=== PATIENT | male | born 1980 | race Caucasian/White ===

== ENCOUNTER 2017-12-11 14:23 | Emergency (ER) | payer OTHER ==
[~2017-12-11] VITALS: Ht 177.8 cm; Wt 74.0 kg
[2017-12-11 14:26] VITALS: Ht 177.8 cm; Wt 74.0 kg
[2017-12-11] MEDS ORDERED: LIDOCAINE HCL 1% 20 ML VIAL ONE (14:31)
[2017-12-11] MEDS ORDERED: LIDOCAINE/EPINEPHRINE 1% 20 ML VIAL ONE (14:36)
[2017-12-11] MEDS ORDERED: LIDOCAINE/EPINEPHRINE 1% 20 ML VIAL INFIL ONE (14:45)
--- NOTE | 2017-12-11 15:07 | EMERGENCY ROOM VISIT NOTE ---
ED Visit Note First contact with patient: 14:28 CHIEF COMPLAINT: Hand laceration HISTORY OF PRESENT ILLNESS: This 37-year-old male patient presents to the emergency department by private vehicle after cutting the right hand with a piece of sheet metal at work. The bleeding has not stopped. Denies weakness or numbness of the hand or fingers. The patient rates the pain as burning/ throbbing and 7/10. The patient denies any other injuries. The patient's Tetanus shot is up to date. He is right-hand dominant. REVIEW OF SYSTEMS: A 6 system review of systems was completed with positives and pertinent negatives listed in the HPI. ALLERGIES: No known allergies. MEDICATIONS: No current medications. PMH: No significant past medical or surgical history. SOCIAL HISTORY: Lives at home. He is a current everyday smoker. PHYSICAL EXAM: Vital Signs: Reviewed Nurse's notes, vital signs stable. GENERAL : Pleasant and cooperative, in no acute distress, but appears uncomfortable and in pain, well-developed, well-nourished. SKIN: There is a 3.5 cm long laceration on the lateral palmar aspect of the left hand between the thumb and index finger. The edges gape apart with traction. There is no foreign material in the wound and it looks clean. There is moderate bleeding. No deep structures such as tendons, bones, or significant blood vessels are seen in the base of the wound. Normal strength and movement of the fingers and wrist. Capillary refill less than 2 seconds. Normal sensation to light and sharp touch. EMERGENCY DEPARTMENT COURSE: I examined the patient. Verbal consent was obtained to perform the procedure. Using sterile technique the wound was cleansed with Betadine. The area was sterilely draped. 3 ml of 1% buffered lidocaine with epinephrine was used to anesthetize the laceration on the hand. Once the patient was anesthetized, the wound was copiously irrigated under pressure with sterile saline. The wound was explored and was as described above. The laceration was repaired using 7 simple interrupted 5-0 nylon sutures with the wound edges being well approximated. The patient tolerated the procedure well. Hemostasis was achieved. The area was cleaned with sterile saline and dressed with bacitracin ointment and bandage. The patient was educated regarding wound care, follow-up for suture removal, and return precautions, he verbalized understanding. The patient was discharged home in good condition and ambulatory. Allergies Uncoded Allergies: N (Allergy, Unknown, 06/06/02) NKDA (Allergy, Unknown, 06/06/02) NONE (Allergy, Unknown, 06/06/02) Vital Signs Date Time Temp Pulse Resp B/P (MAP) Pulse Ox O2 Delivery O2 Flow Rate FiO2 12/11/17 15:15 36.9 89 18 115/80 98 12/11/17 14:26 36.9 88 18 113/73 96 Room Air Medications Administered Medications (Trade) Dose Ordered Sig/Elena Route Start Time Stop Time Status Last Admin Dose Admin Lidocaine/ Epinephrine (Xylocaine/Epine 1% Inj) 20 ml STK-MED ONCE .ROUTE 12/11/17 14:36 12/11/17 14:37 DC 12/11/17 14:40 20 ML Departure Information Impression Primary Impression: Laceration of right hand Dispostion Home / Self-Care Condition GOOD Referrals Zachery Abdi M.D. (PCP) Patient Instructions ED Laceration Hand, [facility] Additional Instructions You have been evaluated and treated in the emergency department today for your right hand laceration. You received 7 sutures to your right hand laceration. Follow-up with your PCP, in urgent care, or ER for suture removal in 8-10 days. Keep wound clean and dry. Do not allow any crusting or dried blood to accumulate on sutures. If this occurs, use a 1:1 solution of hydrogen peroxide/ water on a Q-tip to clean the wound. Do not submerge the wound under water until the sutures have been removed. Use an antibiotic ointment for 3-4 days, then let wound dry. Keep covered with a Band-Aid. Ice and elevate for swelling and pain. Ibuprofen 600 mg and Tylenol 650 mg every 6 hours as needed for pain. As with all lacerations, there may be temporary or permanent nerve damage or scarring. Keep covered when in sun until sutures removed then SPF 50 or higher for one year. Vitamin E oil if desired two weeks after suture removal for reduction of scar. Please seek immediate medical attention for any signs of infection (increasing redness, severe swelling, increased pain, pus drainage, streaking up the hand/ arm, fever/chills), or for any other concerns. Work Instructions Return To Work: 1 day Problem Qualifiers Primary Impression: Laceration of right hand Encounter type: initial encounter Foreign body presence: without foreign body Qualified Codes: S61.411A - Laceration without foreign body of right hand , initial encounter
[2017-12-11 15:15] VITALS: BP 115/80; PULSE 89; TEMP 36.9; O2SAT 98
== END 2017-12-11 15:15 | disposition home or self-care (01) ==
LOC: C.EDB 14:26 → C.EDD 15:15
DX: S61.411A Laceration without foreign body of right hand, initial encounter (principal); W45.8XXA Other foreign body or object entering through skin, initial encounter; Y99.0 Civilian activity done for income or pay; F17.200 Nicotine dependence, unspecified, uncomplicated